=== PATIENT | female | born 1960 | race Two or more races ===

== ENCOUNTER 2017-08-23 01:08 | Emergency (ER) | payer OTHER ==
[2017-08-23] MEDS ORDERED: NS 1,000 ML IV ONE (01:16)
--- NOTE | 2017-08-23 01:20 | EDPHY ---
H & P HPI/ROS: HPI CHIEF COMPLAINT: Syncope HISTORY OF PRESENT ILLNESS: This patient is a very pleasant 56-year-old female , she presents emergency room after she had a syncopal episode. Patient presents emergency room by EMS. She states that she is visiting from the [place] area she is visiting with her for job interview. She states she had half a bottle of wine this evening with dinner. Is rather late dinner. She got back to the hotel around 1130. She was sitting in bed felt lightheaded/ dizzy. Not room spinning. Every time she would close her eyes she felt the sensation. She got up out of bed. Knee on the ground and then had a syncopal episode she did vomit 1 time. She denies any chest pain or shortness of breath. She denies any palpitations. Denied headache or neck pain. No focal weakness numbness or tingling. They just arrived to the [facility]. She states she normally has a half a glass of wine not half a bottle. She has not been drinking much water. She arrives by EMS hemodynamically stable no acute distress however EMS reports initial vital signs blood pressure was 90/ 50. Heart rate in the 80s. Past Medical History: Thyroid disease and takes metoprolol Past Surgical History: No recent surgery Social History: Does not use daily drugs alcohol tobacco. 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 Visiting [place]. Family History: Noncontributory ROS REVIEW OF SYSTEMS: A comprehensive 10 point review of systems is otherwise negative aside from elements mentioned in the history of present illness. Exam Constitutional appears well nontoxic, smells of alcohol, triage nursing summary reviewed, vital signs reviewed, awake/alert. Eyes normal conjunctivae and sclera, EOMI, PERRLA. HENT normal inspection, atraumatic, moist mucus membranes, no epistaxis, neck supple/ no meningismus, no raccoon eyes. Respiratory clear to auscultation bilaterally, normal breath sounds, no respiratory distress, no wheezing. Cardiovascular rate normal, regular rhythm, no murmur, no edema, distal pulses normal. Gastrointestinal soft, non-tender, no rebound, no guarding, normal bowel sounds, no distension, no pulsatile mass. Genitourinary no CVA tenderness. Musculoskeletal no midline vertebral tenderness, full range of motion, no calf swelling, no tenderness of extremities, no meningismus, good pulses, neurovascularly intact. Skin pink, warm, & dry, no rash, skin atraumatic. Neurologic awake, alert and oriented x 3, AAOx3, moves all 4 extremities equally, motor intact, sensory intact, CN II-XII intact, normal cerebellar, normal vision, normal speech. Psychiatric normal mood/affect. Heme/Lymph/Immune no lymphadenopathy. 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 Re-evaluation: EKG interpretation by me on record in [employer] Mobile system. Impression time of EKG 1:33 a.m., this is sinus rhythm rate of 66. I do not appreciate acute ischemia. The EKG is reading accelerated junctional escape rhythm however I disagree with this reading. There are P-waves. Regular. Narrow complex. ED x-ray chest one view negative for acute cardiopulmonary disease. [id number]: Re-evaluation at this time this patient ambulated well throughout the emergency room without any difficulty she feels well. Most likely cause of syncope is vasovagal syncope in the setting of dehydration and alcohol consumption this evening. Altitude. Given her EKG is nonischemic no signs of cardiac arrhythmia, troponin negative electrolytes are appropriate. I do feel that she can be discharged from the emergency room. I do not feel that she warrants admission for syncope. She is feeling much better with IV hydration. She agrees for this plan. She would like to go. Additionally she understands return if she has another syncopal episode questions or concerns. Source: Patient, EMS Constitutional: Initial Vital Signs Temperature (C) 36.2 C 08/23/17 01:44 Heart Rate 69 08/23/17 01:44 Respiratory Rate 18 08/23/17 01:44 Blood Pressure 101/80 08/23/17 01:44 O2 Sat (%) 100 08/23/17 01:44 O2 Delivery Mode Room Air Allergies/Adverse Reactions: No Known Allergies Allergy (Verified 08/23/17 01:45) Home Medications: Medication Instructions Recorded Omeprazole 08/23/17 Synthroid 08/23/17 Medical Decision Making - Data Points Laboratory Results: Laboratory Results 08/23/17 01:10 08/23/17 01:10 08/23/17 08/23/17 08/23/17 01:10 01:10 01:10 WBC 7.90 10^3/uL 10^3/uL (3.80-9.50) RBC 4.09 10^6/uL L 10^6/uL (4.18-5.33) Hgb 13.1 g/dL g/dL (12.6-16.3) Hct 37.8 % L % (38.0-47.0) MCV 92.4 fL fL (81.5-99.8) MCH 32.0 pg pg (27.9-34.1) MCHC 34.7 g/dL g/dL (32.4-36.7) RDW 12.8 % % (11.5-15.2) Plt Count 229 10^3/uL 10^3/uL (150-400) MPV 10.7 fL fL (8.7-11.7) Neut % (Auto) 36.3 % L % (39.3-74.2) Lymph % (Auto) 47.8 % H % (15.0-45.0) Sutton % (Auto) 12.2 % % (4.5-13.0) Eos % (Auto) 2.5 % % (0.6-7.6) Baso % (Auto) 0.9 % % (0.3-1.7) Nucleat RBC Rel Count 0.0 % % (0.0-0.2) Absolute Neuts (auto) 2.87 10^3/uL 10^3/uL (1.70-6.50) Absolute Lymphs (auto) 3.78 10^3/uL H 10^3/uL (1.00-3.00) Absolute Monos (auto) 0.96 10^3/uL H 10^3/uL (0.30-0.80) Absolute Eos (auto) 0.20 10^3/uL 10^3/uL (0.03-0.40) Absolute Basos (auto) 0.07 10^3/uL 10^3/uL (0.02-0.10) Absolute Nucleated RBC 0.00 10^3/uL 10^3/uL (0-0.01) Immature Gran % 0.3 % % (0.0-1.1) Immature Gran # 0.02 10^3/uL 10^3/uL (0.00-0.10) PT 13.4 SEC SEC (12.0-15.0) INR 1.03 (0.83-1.16) APTT 24.5 SEC SEC (23.0-38.0) D-Dimer < 0.27 ug/mLFEU ug/mLFEU (0.00-0.50) Sodium 142 mEq/L mEq/L (134-144) Potassium 3.4 mEq/L L mEq/L (3.5-5.2) Chloride 106 mEq/L mEq/L (97-110) Carbon Dioxide 20 mEq/l L mEq/l (22-31) Anion Gap 16 mEq/L mEq/L (8-16) BUN 21 mg/dL mg/dL (7-23) Creatinine 0.9 mg/dL mg/dL (0.6-1.0) Estimated GFR > 60 Glucose 103 mg/dL H mg/dL (70-100) Calcium 9.5 mg/dL mg/dL (8.5-10.4) Magnesium 1.8 mg/dL mg/dL (1.6-2.3) Total Bilirubin 0.5 mg/dL mg/dL (0.1-1.4) Conjugated Bilirubin 0.2 mg/dL mg/dL (0.0-0.5) Unconjugated Bilirubin 0.3 mg/dL mg/dL (0.0-1.1) AST 26 IU/L IU/L (14-46) ALT 31 IU/L IU/L (9-52) Alkaline Phosphatase 65 IU/L IU/L (38-126) Creatine Kinase 107 IU/L IU/L (0-156) CK-MB (CK-2) Fraction 0.98 ng/mL ng/mL (0.00-3.19) Troponin I < 0.012 ng/mL ng/mL (0.000-0.034) NT-Pro-B Natriuret Pep 81 pg/mL pg/mL (0-125) Total Protein 7.0 g/dL g/dL (6.3-8.2) Albumin 4.3 g/dL g/dL (3.5-5.0) Lipase 44 IU/L IU/L (23-300) Ethyl Alcohol 48 mg/dL H mg/dL (0-10) Medications Given: Discontinued Medications Sodium Chloride (Ns) 1,000 mls @ 0 mls/hr IV EDNOW ONE; Wide Open PRN Reason: Protocol Stop: 08/23/17 01:17 Last Admin: 08/23/17 01:38 Dose: 1,000 mls Departure - Departure Disposition: Home, Routine, Self-Care Clinical Impression: Dehydration Syncope Qualifiers: Syncope type: unspecified Qualified Code(s): R55 - Syncope and collapse Condition: Good Instructions: Syncope (ED) Additional Instructions: 1. Stay well-hydrated drink lots of fluids well in [place]. 2. Return emergency room if you have chest pain, shortness of breath or you pass out again. Referrals: Patient,NotPresent [Unknown] - As per Instructions
[2017-08-23 01:23] LABS: % IMMATURE GRANULYOCYTES 0.3 % (0.0-1.1); ABSOLUTE IMMATURE GRANULOCYTES 0.02 10^3/uL (0.00-0.10); ADD DIFF? NO; ADD MORPH? NO; ADD SCAN? NO; ATYPICAL LYMPHOCYTE FLAG 20 (0-99); FRAGMENT RBC FLAG 0 (0-99); HEMATOCRIT 37.8 % (38.0-47.0); HEMOGLOBIN 13.1 g/dL (12.6-16.3); LEFT SHIFT FLG 0 (0-99); LIPEMIA HEMOLYSIS FLAG 90 (0-99); MEAN CELL HEMOGLOBIN CONCENTR. 34.7 g/dL (32.4-36.7); MEAN CELL VOLUME 92.4 fL (81.5-99.8); MEAN PLATELET VOLUME 10.7 fL (8.7-11.7); PLATELET CLUMPS FLAG 10 (0-99); PLATELET COUNT 229 10^3/uL (150-400); RED BLOOD CELL COUNT 4.09 10^6/uL (4.18-5.33); RED CELL DISTRIBUTION WIDTH 12.8 % (11.5-15.2)
[2017-08-23 01:31] LABS: INR 1.03 (0.83-1.16); PROTIME(PATIENT) 13.4 SEC (12.0-15.0)
[2017-08-23 01:32] LABS: APTT 24.5 SEC (23.0-38.0)
--- NOTE | 2017-08-23 01:35 | CPEKG ---
Heart Rate: 66 RR Interval: 909 QRSD Interval: 94 QT Interval: 432 QTC Interval: 453 QRS Marshall: 89 T Wave Marshall: 40 EKG Severity - ABNORMAL ECG - EKG Impression: ACCELERATED JUNCTIONAL ESCAPE RHYTHM Electronically Signed By: Rome Lopez 23-Aug-2017 07:53:27
[2017-08-23 01:38] LABS: ALANINE AMINOTRANSFERASE 31 IU/L (9-52); ALBUMIN 4.3 g/dL (3.5-5.0); ALKALINE PHOSPHATASE 65 IU/L (38-126); ANION GAP 16 mEq/L (8-16); ASPARTATE AMINOTRANSFERASE 26 IU/L (14-46); BILIRUBIN,TOTAL 0.5 mg/dL (0.1-1.4); BILIRUBIN-CONJUGATED 0.2 mg/dL (0.0-0.5); BILIRUBIN-UNCONJUGATED 0.3 mg/dL (0.0-1.1); CALCIUM 9.5 mg/dL (8.5-10.4); CARBON DIOXIDE 20 mEq/l (22-31); CHLORIDE 106 mEq/L (97-110); CREATININE 0.9 mg/dL (0.6-1.0); ETHANOL SERUM 48 mg/dL (0-10); GLOMERULAR FILTRATION RATE > 60; GLUCOSE 103 mg/dL (70-100); MAGNESIUM 1.8 mg/dL (1.6-2.3); POTASSIUM 3.4 mEq/L (3.5-5.2); SODIUM 142 mEq/L (134-144)
[2017-08-23 01:45] VITALS: RESP 18; TEMP 97.2
[2017-08-23 01:49] LABS: CREATINE KINASE-MB FRACTION 0.98 ng/mL (0.00-3.19); TROPONIN I < 0.012 ng/mL (0.000-0.034)
[2017-08-23 02:28] VITALS: BP 116/74; PULSE 74; O2SAT 96
== END 2017-08-23 04:33 | disposition home or self-care (01) ==
DX: R55 Syncope and collapse (principal); E86.0 Dehydration
CPT/HCPCS: G0480